=== PATIENT | female | born 1950 | race Caucasian/White ===

== ENCOUNTER 2016-06-05 11:43 | Emergency (ER) | payer OTHER ==
--- NOTE | 2016-06-05 12:34 | EDM.PDOC ---
ED HPI Trauma - General Chief Complaint: Upper Extremity Injury/Pain Stated Complaint: WRIST Time Seen by Provider: 06/05/16 11:44 Source: Reports: Patient History Limitations: Reports: No limitations - History of Present Illness INITIAL COMMENTS - FREE TEXT/NARRATIVE: History of present illness: [] Patient was moving a yard or at work yesterday and it was a metal and cut her left wrist. The wound today is now swollen red and she's having tenderness when she moves her wrist. Patient denies any fevers, numbness or tingling. She is less tender she was in 2014 Review of systems: As per history of present illness and below otherwise all systems reviewed and negative. Past medical history: As per history of present illness and as reviewed below otherwise noncontributory. Surgical history: As per history of present illness and as reviewed below otherwise noncontributory. Social history: No reported history of drug or alcohol abuse. Family history: As per history of present illness and as reviewed below otherwise noncontributory. Physical exam: General: Well developed, well nourished in NAD HEENT: Atraumatic, normocephalic, pupils reactive, negative for conjunctival pallor or scleral icterus, mucous membranes moist, throat clear, neck supple, nontender, trachea midline. Lungs: Clear to auscultation, breath sounds equal bilaterally, chest nontender. Heart: S1S2, regular, negative for clicks, rubs, or JVD. Abdomen: Soft, nondistended, nontender. Negative for masses or hepatosplenomegaly. Negative for costovertebral tenderness. Pelvis: Stable nontender. Genitourinary: Deferred. Rectal: Deferred. Extremities: Right wrist no obvious deformity, there is swelling erythema tenderness over the distal ulna, no active bleeding or purulent drainage. negative for cords or calf pain. Neurovascular unremarkable. Neuro: Awake, alert, oriented. Cranial nerves II through XII unremarkable. Cerebellum unremarkable. Motor and sensory unremarkable throughout. Exam nonfocal. Diagnostics: [] X-ray negative for fracture Therapeutics: [] Impression: [] Cellulitis right wrist Plan: [] Keflex 4 times a day for 7 days Definitive disposition and diagnosis as appropriate pending reevaluation and review of above. 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: Social & Family History - Family History Family Medical History: Noncontributory - Tobacco Use Smoking Status *Q: Current Every Day Smoker Years of Tobacco use: 50 Packs/Tins Daily: 1 - Caffeine Use Caffeine Use: Reports: Coffee - Recreational Drug Use Recreational Drug Use: No Review of Systems - Review of Systems Review Of Systems: See Below (See history of present illness) Trauma Exam - Physical Exam Exam: See Below (See history of present illness) Course - Vital Signs Last Recorded V/S: Last Vital Signs Temp 36.8 C 06/05/16 13:09 Pulse 77 06/05/16 12:04 Resp 18 06/05/16 12:04 BP 157/93 H 06/05/16 13:09 Pulse Ox 94 L 06/05/16 12:04 Departure - Departure Time of Disposition: 13:19 Disposition: Home, Self-Care 01 Condition: good Clinical Impression: Cellulitis of wrist Prescriptions: Cephalexin [Keflex] 500 mg PO Q6HR #28 cap Forms: ED Department Discharge Additional Instructions: The following information is given to patients seen in the emergency department who are being discharged to home. This information is to outline your options for follow-up care. We provide all patients seen in our emergency department with a follow-up referral. The need for follow-up, as well as the timing and circumstances, are variable depending upon the specifics of your emergency department visit. If you don't have a primary care physician on staff, we will provide you with a referral. We always advise you to contact your personal physician following an emergency department visit to inform them of the circumstance of the visit and for follow-up with them and/or the need for any referrals to a consulting specialist. The emergency department will also refer you to a specialist when appropriate. This referral assures that you have the opportunity for follow-up care with a specialist. All of these measure are taken in an effort to provide you with optimal care, which includes your follow-up. Under all circumstances we always encourage you to contact your private physician who remains a resource for coordinating your care. When calling for follow-up care, please make the office aware that this follow-up is from your recent emergency room visit. If for any reason you are refused follow-up, please contact the [facility] Emergency Department at and asked to speak to the emergency department charge nurse. Take Stefano as directed Followup PMD [facility] [address] [place] [id number]
--- NOTE | 2016-06-05 12:57 | CR ---
EXAMINATION: Right wrist HISTORY: Pain COMPARISON: None TECHNIQUE: 2 views FINDINGS: There is no acute osseous abnormality, dislocation, or fracture. Bone mineralization appea rs osteopenic. The radiocarpal alignment is preserved. Mild joint space narrowing is noted within th e radiocarpal articulation. Mild first CMC arthritis changes noted. IMPRESSION: Mild degenerative changes and osteopenia without an acute finding.
[2016-06-05 13:45] VITALS: BP 136/78
== END 2016-06-05 13:40 | disposition home or self-care (01) ==
LOC: MW.ED 11:43
DX: L03.113 Cellulitis of right upper limb (principal); F17.210 Nicotine dependence, cigarettes, uncomplicated; Z79.899 Other long term (current) drug therapy
CPT/HCPCS: 73100-26-RT; 73100-RT; 99283

== ENCOUNTER 2023-03-01 18:39 | Inpatient (IN) | payer MEDICARE, BC ==
[2023-03-01] MEDS ORDERED: Sodium Chloride 0.9% 2.5 ML Syringe FLUSH PRN (19:25)
[2023-03-01] MEDS ORDERED: Sodium Chloride 0.9% 1,000 ML IV ONE ×2 (19:25→21:15)
[2023-03-01] MEDS ORDERED: Sodium Chloride 0.9% 10 ML Syringe FLUSH PRN (19:25)
[2023-03-01 20:09] LABS: HEMATOCRIT 44.4 % (37.0-47.0); HEMOGLOBIN 14.8 g/dL (12.0-16.0); MEAN CORPUSCULAR HEMOGLOBIN 30.4 pg (28.0-32.0); MEAN CORPUSCULAR HGB CONC 33.3 g/dL (32.0-36.0); MEAN CORPUSCULAR VOLUME 91.2 fL (83.0-99.0); MEAN PLATELET VOLUME 9.3 fL (9.4-12.3); PLATELET COUNT,PLT 302 K/uL (150-400); RED BLOOD CELL COUNT 4.87 M/uL (4.10-5.30); WHITE BLOOD CELL COUNT,WBC 29.21 K/uL (3.9-11.3)
[2023-03-01 20:10] LABS: BASE EXCESS VENOUS 2.5 (-2.0-3.0); PH,VENOUS 7.38 (7.31-7.41)
[2023-03-01 20:22] LABS: CORONAVIRUS COVID-19 NAA NEGATIVE (NEGATIVE); INFLUENZA A NAA NEGATIVE (NEGATIVE); INFLUENZA B NAA NEGATIVE (NEGATIVE); RESPIRATORY SYNCYTIAL VIR NAA NEGATIVE (NEGATIVE)
[2023-03-01] MEDS ORDERED: Cefepime 2 GM in Sodium Chloride 0.9% 50 ML IV ONE (20:22)
[2023-03-01 20:33] LABS: D-DIMER QUANTITATIVE 7.7 mg/L FEU (0.00-0.50); INR 1.49 (0.86-1.11); PTT,PARTIAL THROMBOPLSTIN TIME 25.4 SEC (23.9-30.7)
[2023-03-01 20:58] LABS: LACTIC ACID 4.2 mmol/L (0.4-2.0)
[2023-03-01 21:00] LABS: A/G RATIO 0.4 (0.9-1.6); BILIRUBIN TOTAL 0.7 mg/dL (0.2-1.0); CALCIUM 8.8 mg/dL (8.5-10.1); CARBON DIOXIDE,CO2 26.4 mmol/L (21.0-32.0); CREATININE 1.4 mg/dL (0.6-1.0); EST CRCL DRUG DOSING (CG) 21.71 mL/min; MAGNESIUM 2.3 mg/dL (1.8-2.4); POTASSIUM,K 3.7 mmol/L (3.5-5.1); PROTEIN TOTAL,TP 7.4 g/dL (6.4-8.2); TSH ULTRASENSITIVE 1.56 uIU/mL (0.36-3.74)
[2023-03-01 21:23] LABS: LYMPHOCYTES ABSOLUTE MAN 2.63 K/uL (1.00-4.80); LYMPHOCYTES PERCENT MAN 9 % (24-44); MONOCYTES ABSOLUTE MAN 2.04 K/uL (0.00-0.80); MONOCYTES PERCENT MAN 7 % (0-8); SEG NEUTROPHILS ABSOLUTE MAN 24.54 K/uL (1.80-7.70); SEG NEUTROPHILS PERCENT MAN 84 % (41-71)
[2023-03-01] MEDS ORDERED: Iopamidol 755 MG/ML 500 ML Multipack Bottle IVPUSH STA (22:01)
[2023-03-01] MEDS ORDERED: Vancomycin 1 GM SDV ONE (22:12)
[2023-03-01] MEDS ORDERED: Sodium Chloride 0.9% 250 ML ONE (22:14)
[2023-03-01 22:39] LABS: BILIRUBIN,URINE NEGATIVE (NEGATIVE); COLOR,URINE YELLOW; GLUCOSE,URINE NEGATIVE (NEGATIVE); KETONES,URINE NEGATIVE (NEGATIVE); LEUKOCYTE ESTERASE,URINE TRACE (NEGATIVE); NITRITE,URINE POSITIVE (NEGATIVE); OCCULT BLOOD,URINE TRACE-INTACT (NEGATIVE); PH,URINE 5.5 (5.0-8.0); PROTEIN,URINE NEGATIVE (NEGATIVE); UROBILINOGEN,URINE 0.2 EU/dL (<2.0)
[2023-03-01 23:05] LABS: APPEARANCE,URINE HAZY
[2023-03-01 23:07] LABS: BACTERIA,URINE 2+ (NEGATIVE); EPITHELIAL CELLS,URINE RARE (NONE-FEW); FINE GRANULAR CASTS,URINE 0-1 (NEGATIVE); MUCUS,URINE MODERATE (NONE-MOD)
[2023-03-02] MEDS ORDERED: Enoxaparin 60 MG/0.6 ML Syringe SUBCUT STA (00:03)
[2023-03-02] MEDS ORDERED: Sodium Chloride 0.9% 500 ML IV SCH ×2 (01:15→02:30)
[2023-03-02] MEDS ORDERED: Acetaminophen 325 MG Tab PO PRN (01:33)
[2023-03-02] MEDS: Sodium Chloride 0.9% 1,000 ML IV SCH ×3 (02:06→17:08)
[2023-03-02] MEDS: Piperacillin/Tazobactam 4.5 GM in Sodium Chloride 0.9% 100 ML IV SCH ×3 (02:07→17:10)
[2023-03-02] MEDS: Albuterol/Ipratropium 3.0-0.5 MG/3 ML Neb Soln NEB PRN (02:48)
[2023-03-02] MEDS ORDERED: Heparin Sodium 5,000 Units/ML Vial IVPUSH ONE (08:27)
[2023-03-02] MEDS ORDERED: Sodium Chloride 0.9% 10 ML Syringe FLUSH PRN (08:31)
[2023-03-02] MEDS ORDERED: Docusate Sodium 100 MG Cap PO PRN (08:31)
[2023-03-02] MEDS ORDERED: Ondansetron 4 MG/2 ML SDV IVPUSH PRN (08:31)
[2023-03-02] MEDS ORDERED: Sodium Chloride 0.9% 2.5 ML Syringe FLUSH PRN (08:31)
[2023-03-02 08:49] LABS: HEMATOCRIT 38.5 % (37.0-47.0); MEAN CORPUSCULAR HEMOGLOBIN 30.5 pg (28.0-32.0); MEAN CORPUSCULAR HGB CONC 33.8 g/dL (32.0-36.0); MEAN CORPUSCULAR VOLUME 90.4 fL (83.0-99.0); MEAN PLATELET VOLUME 9.4 fL (9.4-12.3); PLATELET COUNT,PLT 273 K/uL (150-400); RED BLOOD CELL COUNT 4.26 M/uL (4.10-5.30); WHITE BLOOD CELL COUNT,WBC 20.66 K/uL (3.9-11.3)
[2023-03-02] MEDS ORDERED: Apixaban 5 MG Tab PO SCH (09:00)
[2023-03-02 09:24] LABS: BAND ABSOLUTE MAN 3.31; BAND PERCENT MAN 16 %; LYMPHOCYTES ABSOLUTE MAN 0.62 K/uL (1.00-4.80); LYMPHOCYTES PERCENT MAN 3 % (24-44); MONOCYTES ABSOLUTE MAN 1.24 K/uL (0.00-0.80); MONOCYTES PERCENT MAN 6 % (0-8); SEG NEUTROPHILS PERCENT MAN 75 % (41-71)
[2023-03-02 09:25] LABS: TOXIC GRANULATION 2+ MODERATE
[2023-03-02 09:47] LABS: A/G RATIO 0.4 (0.9-1.6); ALBUMIN 1.5 g/dL (3.4-5.0); BILIRUBIN TOTAL 0.5 mg/dL (0.2-1.0); CALCIUM 7.8 mg/dL (8.5-10.1); CARBON DIOXIDE,CO2 25.8 mmol/L (21.0-32.0); CREATININE 0.8 mg/dL (0.6-1.0); EST CRCL DRUG DOSING (CG) 40.86 mL/min; MAGNESIUM 1.9 mg/dL (1.8-2.4); PHOSPHORUS 2.8 mg/dL (2.6-4.7); POTASSIUM,K 3.2 mmol/L (3.5-5.1); PROTEIN TOTAL,TP 5.5 g/dL (6.4-8.2)
[2023-03-02] MEDS ORDERED: Potassium Chloride 20 MEQ Tab.ER PO ONE (10:57)
[2023-03-02] MEDS: Azithromycin 250 MG Tab PO SCH (11:36)
[2023-03-02] MEDS ORDERED: Enoxaparin 40 MG/0.4 ML Syringe SUBCUT SCH ×2 (12:00→13:00)
[2023-03-02] MEDS ORDERED: Enoxaparin 30 MG/0.3 ML Syringe SUBCUT SCH (12:00)
[2023-03-02] MEDS: Heparin Sodium/0.45% NaCl 500 ML IV SCH (13:14)
[2023-03-02] MEDS ORDERED: Morphine 2 MG/ML SYRINGE IVPUSH PRN (20:30)
[2023-03-03] MEDS: Piperacillin/Tazobactam 4.5 GM in Sodium Chloride 0.9% 100 ML IV SCH ×3 (00:50→18:05)
[2023-03-03] MEDS: Heparin Sodium 5,000 Units/ML Vial IVPUSH PRN ×2 (01:21→14:57)
[2023-03-03] MEDS: Sodium Chloride 0.9% 1,000 ML IV SCH ×3 (02:55→19:27)
[2023-03-03 05:49] LABS: BASOPHILS PERCENT AUTO 0.5 % (0.0-1.0); EOSINOPHILS ABSOLUTE AUTO 0.01 K/uL (0.00-0.45); EOSINOPHILS PERCENT AUTO 0.1 % (0.0-6.0); HEMATOCRIT 36.1 % (37.0-47.0); HEMOGLOBIN 11.7 g/dL (12.0-16.0); IMMATURE GRAN PERCENT AUTO 2.6 % (0.0-0.4); LYMPHOCYTES ABSOLUTE AUTO 1.22 K/uL (1.00-4.80); LYMPHOCYTES PERCENT AUTO 6.3 % (24.0-44.0); MEAN CORPUSCULAR HEMOGLOBIN 30.3 pg (28.0-32.0); MEAN CORPUSCULAR HGB CONC 32.4 g/dL (32.0-36.0); MEAN CORPUSCULAR VOLUME 93.5 fL (83.0-99.0); MEAN PLATELET VOLUME 9.5 fL (9.4-12.3); MONOCYTES ABSOLUTE AUTO 0.96 K/uL (0.00-0.80); NEUTROPHILS ABSOLUTE AUTO 16.56 K/uL (1.80-7.70); NEUTROPHILS PERCENT AUTO 85.5 % (41.0-71.0); PLATELET COUNT,PLT 238 K/uL (150-400); RED BLOOD CELL COUNT 3.86 M/uL (4.10-5.30); WHITE BLOOD CELL COUNT,WBC 19.35 K/uL (3.9-11.3)
[2023-03-03 06:30] LABS: CALCIUM 7.6 mg/dL (8.5-10.1); CARBON DIOXIDE,CO2 25.1 mmol/L (21.0-32.0); CREATININE 0.6 mg/dL (0.6-1.0); EST CRCL DRUG DOSING (CG) 56.37 mL/min; MAGNESIUM 1.7 mg/dL (1.8-2.4); PHOSPHORUS 2.3 mg/dL (2.6-4.7)
[2023-03-03 07:21] LABS: CARCINOEMBRYONIC ANTIGEN,CEA 1.4 ng/mL
[2023-03-03] MEDS ORDERED: Magnesium Sulfate/Water 2 GM in Premix Bag 1 BAG IV ONE (07:51)
[2023-03-03] MEDS: Azithromycin 250 MG Tab PO SCH (09:38)
[2023-03-03] MEDS: Potassium Chloride 20 MEQ Tab.ER PO SCH ×2 (09:38→18:03)
[2023-03-03] MEDS: Phosphorus #1 250 MG Tab PO SCH ×3 (09:40→18:03)
[2023-03-03] MEDS: Heparin Sodium/0.45% NaCl 500 ML IV SCH (19:26)
[2023-03-03] MEDS: VANCOmycin 1.5 GM/300 ML 1.5 GM in Premix Bag 1 BAG IV SCH (22:15)
[2023-03-04] MEDS: Phosphorus #1 250 MG Tab PO SCH ×5 (00:28→23:33)
[2023-03-04] MEDS: Piperacillin/Tazobactam 4.5 GM in Sodium Chloride 0.9% 100 ML IV SCH ×3 (00:36→17:23)
[2023-03-04 06:02] LABS: HEMATOCRIT 36.9 % (37.0-47.0); HEMOGLOBIN 12.1 g/dL (12.0-16.0); MEAN CORPUSCULAR HEMOGLOBIN 30.6 pg (28.0-32.0); MEAN CORPUSCULAR HGB CONC 32.8 g/dL (32.0-36.0); MEAN CORPUSCULAR VOLUME 93.2 fL (83.0-99.0); MEAN PLATELET VOLUME 9.7 fL (9.4-12.3); PLATELET COUNT,PLT 262 K/uL (150-400); RED BLOOD CELL COUNT 3.96 M/uL (4.10-5.30); WHITE BLOOD CELL COUNT,WBC 20.03 K/uL (3.9-11.3)
[2023-03-04 06:32] LABS: CARBON DIOXIDE,CO2 24.9 mmol/L (21.0-32.0); CREATININE 0.5 mg/dL (0.6-1.0); EST CRCL DRUG DOSING (CG) 76.34 mL/min; MAGNESIUM 1.5 mg/dL (1.8-2.4); PHOSPHORUS 2.8 mg/dL (2.6-4.7); POTASSIUM,K 2.9 mmol/L (3.5-5.1)
[2023-03-04 06:58] LABS: BAND PERCENT MAN 7 %; BASOPHILS PERCENT MAN 0 % (0-1); EOSINOPHILS PERCENT MAN 0 % (0-6); LYMPHOCYTES PERCENT MAN 4 % (24-44); MONOCYTES PERCENT MAN 6 % (0-8); SEG NEUTROPHILS ABSOLUTE MAN 16.62 K/uL (1.80-7.70); SEG NEUTROPHILS PERCENT MAN 83 % (41-71)
[2023-03-04] MEDS ORDERED: Magnesium Sulfate/Water 4 GM in Premix Bag 1 BAG IV ONE (08:05)
[2023-03-04] MEDS ORDERED: NS with KCl 40mEq 1,000 ML IV ONE (08:30)
[2023-03-04] MEDS: Azithromycin 250 MG Tab PO SCH (09:19)
[2023-03-04] MEDS: Apixaban 5 MG Tab PO SCH ×2 (09:20→21:41)
[2023-03-04] MEDS: Potassium Chloride 20 MEQ Tab.ER PO SCH ×2 (09:21→21:42)
[2023-03-04] MEDS: Lisinopril 10 MG Tab PO SCH (11:39)
[2023-03-04] MEDS: VANCOmycin 1.5 GM/300 ML 1.5 GM in Premix Bag 1 BAG IV SCH (21:42)
[2023-03-04] MEDS: Albuterol/Ipratropium 3.0-0.5 MG/3 ML Neb Soln NEB PRN (23:40)
[2023-03-05] MEDS: Piperacillin/Tazobactam 4.5 GM in Sodium Chloride 0.9% 100 ML IV SCH ×3 (01:30→18:43)
[2023-03-05] MEDS: Phosphorus #1 250 MG Tab PO SCH ×4 (05:46→23:47)
[2023-03-05 06:12] LABS: BASOPHILS PERCENT AUTO 0.6 % (0.0-1.0); EOSINOPHILS ABSOLUTE AUTO 0.05 K/uL (0.00-0.45); EOSINOPHILS PERCENT AUTO 0.3 % (0.0-6.0); HEMATOCRIT 36.6 % (37.0-47.0); HEMOGLOBIN 11.7 g/dL (12.0-16.0); IMMATURE GRAN ABSOLUTE AUTO 0.53 K/uL (0.00-0.05); IMMATURE GRAN PERCENT AUTO 3.1 % (0.0-0.4); LYMPHOCYTES ABSOLUTE AUTO 1.12 K/uL (1.00-4.80); LYMPHOCYTES PERCENT AUTO 6.5 % (24.0-44.0); MEAN CORPUSCULAR HEMOGLOBIN 29.6 pg (28.0-32.0); MEAN CORPUSCULAR VOLUME 92.7 fL (83.0-99.0); MEAN PLATELET VOLUME 9.6 fL (9.4-12.3); MONOCYTES ABSOLUTE AUTO 0.73 K/uL (0.00-0.80); MONOCYTES PERCENT AUTO 4.2 % (0.0-8.0); NEUTROPHILS PERCENT AUTO 85.3 % (41.0-71.0); PLATELET COUNT,PLT 277 K/uL (150-400); RED BLOOD CELL COUNT 3.95 M/uL (4.10-5.30); WHITE BLOOD CELL COUNT,WBC 17.23 K/uL (3.9-11.3)
[2023-03-05 06:41] LABS: CALCIUM 7.5 mg/dL (8.5-10.1); CARBON DIOXIDE,CO2 28.7 mmol/L (21.0-32.0); CREATININE 0.6 mg/dL (0.6-1.0); EST CRCL DRUG DOSING (CG) 65.56 mL/min; MAGNESIUM 1.9 mg/dL (1.8-2.4); PHOSPHORUS 2.9 mg/dL (2.6-4.7); POTASSIUM,K 4.6 mmol/L (3.5-5.1)
[2023-03-05] MEDS: Potassium Chloride 20 MEQ Tab.ER PO SCH ×2 (09:35→20:30)
[2023-03-05] MEDS: Apixaban 5 MG Tab PO SCH ×2 (09:35→20:28)
[2023-03-05] MEDS: Lisinopril 10 MG Tab PO SCH (09:36)
[2023-03-05] MEDS: Azithromycin 250 MG Tab PO SCH (09:38)
[2023-03-05] MEDS: VANCOmycin 1.5 GM/300 ML 1.5 GM in Premix Bag 1 BAG IV SCH (22:30)
[2023-03-06] MEDS: Piperacillin/Tazobactam 4.5 GM in Sodium Chloride 0.9% 100 ML IV SCH ×3 (00:43→17:53)
[2023-03-06] MEDS: Phosphorus #1 250 MG Tab PO SCH ×4 (05:32→23:57)
[2023-03-06 05:47] LABS: HEMATOCRIT 37.1 % (37.0-47.0); HEMOGLOBIN 12.5 g/dL (12.0-16.0); MEAN CORPUSCULAR HEMOGLOBIN 30.7 pg (28.0-32.0); MEAN CORPUSCULAR HGB CONC 33.7 g/dL (32.0-36.0); MEAN CORPUSCULAR VOLUME 91.2 fL (83.0-99.0); MEAN PLATELET VOLUME 9.4 fL (9.4-12.3); PLATELET COUNT,PLT 278 K/uL (150-400); RED BLOOD CELL COUNT 4.07 M/uL (4.10-5.30); WHITE BLOOD CELL COUNT,WBC 18.03 K/uL (3.9-11.3)
[2023-03-06 06:12] LABS: CALCIUM 7.4 mg/dL (8.5-10.1); CARBON DIOXIDE,CO2 29.3 mmol/L (21.0-32.0); CREATININE 0.5 mg/dL (0.6-1.0); MAGNESIUM 1.4 mg/dL (1.8-2.4); POTASSIUM,K 4.4 mmol/L (3.5-5.1)
[2023-03-06 06:42] LABS: BAND ABSOLUTE MAN 0.54; BAND PERCENT MAN 3 %; EOSINOPHILS PERCENT MAN 0 % (0-6); LYMPHOCYTES ABSOLUTE MAN 1.26 K/uL (1.00-4.80); LYMPHOCYTES PERCENT MAN 7 % (24-44); SEG NEUTROPHILS PERCENT MAN 81 % (41-71)
[2023-03-06 06:44] LABS: MONOCYTES ABSOLUTE MAN 1.62 K/uL (0.00-0.80); MONOCYTES PERCENT MAN 9 % (0-8)
[2023-03-06] MEDS: Potassium Chloride 20 MEQ Tab.ER PO SCH ×2 (09:59→20:49)
[2023-03-06] MEDS: Apixaban 5 MG Tab PO SCH ×2 (10:00→20:48)
[2023-03-06] MEDS: Azithromycin 250 MG Tab PO SCH (10:01)
[2023-03-06] MEDS: Lisinopril 10 MG Tab PO SCH (10:02)
[2023-03-06] MEDS ORDERED: Magnesium Sulfate/Water 2 GM in Premix Bag 1 BAG IV ONE (11:33)
[2023-03-07] MEDS: Piperacillin/Tazobactam 4.5 GM in Sodium Chloride 0.9% 100 ML IV SCH ×3 (00:55→17:38)
[2023-03-07 05:54] LABS: BASOPHILS ABSOLUTE AUTO 0.08 K/uL (0.00-0.20); BASOPHILS PERCENT AUTO 0.4 % (0.0-1.0); EOSINOPHILS ABSOLUTE AUTO 0.05 K/uL (0.00-0.45); EOSINOPHILS PERCENT AUTO 0.3 % (0.0-6.0); HEMATOCRIT 35.7 % (37.0-47.0); HEMOGLOBIN 12.1 g/dL (12.0-16.0); IMMATURE GRAN ABSOLUTE AUTO 0.41 K/uL (0.00-0.05); IMMATURE GRAN PERCENT AUTO 2.2 % (0.0-0.4); LYMPHOCYTES ABSOLUTE AUTO 1.13 K/uL (1.00-4.80); LYMPHOCYTES PERCENT AUTO 6.1 % (24.0-44.0); MEAN CORPUSCULAR HGB CONC 33.9 g/dL (32.0-36.0); MEAN CORPUSCULAR VOLUME 88.6 fL (83.0-99.0); MEAN PLATELET VOLUME 9.3 fL (9.4-12.3); MONOCYTES ABSOLUTE AUTO 0.83 K/uL (0.00-0.80); MONOCYTES PERCENT AUTO 4.5 % (0.0-8.0); NEUTROPHILS ABSOLUTE AUTO 15.91 K/uL (1.80-7.70); NEUTROPHILS PERCENT AUTO 86.5 % (41.0-71.0); PLATELET COUNT,PLT 300 K/uL (150-400); RED BLOOD CELL COUNT 4.03 M/uL (4.10-5.30); WHITE BLOOD CELL COUNT,WBC 18.41 K/uL (3.9-11.3)
[2023-03-07 06:30] LABS: CALCIUM 7.5 mg/dL (8.5-10.1); CREATININE 0.5 mg/dL (0.6-1.0); MAGNESIUM 1.5 mg/dL (1.8-2.4); POTASSIUM,K 4.3 mmol/L (3.5-5.1)
[2023-03-07] MEDS: Phosphorus #1 250 MG Tab PO SCH ×3 (06:54→17:38)
[2023-03-07] MEDS ORDERED: Magnesium Sulfate/Water 2 GM in Premix Bag 1 BAG IV ONE (08:52)
[2023-03-07] MEDS ORDERED: amLODIPine 5 MG Tab PO SCH (09:00)
[2023-03-07] MEDS: Potassium Chloride 20 MEQ Tab.ER PO SCH ×2 (09:11→20:27)
[2023-03-07] MEDS: Azithromycin 250 MG Tab PO SCH (09:11)
[2023-03-07] MEDS: Apixaban 5 MG Tab PO SCH ×2 (09:12→20:27)
[2023-03-07] MEDS: Lisinopril 10 MG Tab PO SCH (09:13)
[2023-03-07] MEDS ORDERED: Loperamide 2 MG Cap PO PRN (10:03)
[2023-03-07] MEDS ORDERED: Furosemide 40 MG/4 ML VIAL IVPUSH SCH (12:15)
[2023-03-07] MEDS ORDERED: Furosemide 40 MG/4 ML VIAL IVPUSH STA (12:41)
[2023-03-08] MEDS: Phosphorus #1 250 MG Tab PO SCH ×2 (00:01→06:04)
[2023-03-08] MEDS: Piperacillin/Tazobactam 4.5 GM in Sodium Chloride 0.9% 100 ML IV SCH ×3 (01:02→17:20)
[2023-03-08 06:01] LABS: BASOPHILS ABSOLUTE AUTO 0.05 K/uL (0.00-0.20); BASOPHILS PERCENT AUTO 0.3 % (0.0-1.0); EOSINOPHILS ABSOLUTE AUTO 0.08 K/uL (0.00-0.45); EOSINOPHILS PERCENT AUTO 0.5 % (0.0-6.0); HEMATOCRIT 34.4 % (37.0-47.0); HEMOGLOBIN 11.8 g/dL (12.0-16.0); IMMATURE GRAN ABSOLUTE AUTO 0.26 K/uL (0.00-0.05); IMMATURE GRAN PERCENT AUTO 1.6 % (0.0-0.4); LYMPHOCYTES ABSOLUTE AUTO 1.14 K/uL (1.00-4.80); LYMPHOCYTES PERCENT AUTO 6.9 % (24.0-44.0); MEAN CORPUSCULAR HEMOGLOBIN 30.8 pg (28.0-32.0); MEAN CORPUSCULAR HGB CONC 34.3 g/dL (32.0-36.0); MEAN CORPUSCULAR VOLUME 89.8 fL (83.0-99.0); MEAN PLATELET VOLUME 9.1 fL (9.4-12.3); MONOCYTES ABSOLUTE AUTO 0.91 K/uL (0.00-0.80); MONOCYTES PERCENT AUTO 5.5 % (0.0-8.0); NEUTROPHILS ABSOLUTE AUTO 14.16 K/uL (1.80-7.70); NEUTROPHILS PERCENT AUTO 85.2 % (41.0-71.0); PLATELET COUNT,PLT 301 K/uL (150-400); RED BLOOD CELL COUNT 3.83 M/uL (4.10-5.30)
[2023-03-08 06:36] LABS: A/G RATIO 0.3 (0.9-1.6); ALBUMIN 1.2 g/dL (3.4-5.0); BILIRUBIN TOTAL 0.6 mg/dL (0.2-1.0); CALCIUM 7.8 mg/dL (8.5-10.1); CREATININE 0.9 mg/dL (0.6-1.0); EST CRCL DRUG DOSING (CG) 44.37 mL/min; PROTEIN TOTAL,TP 5.4 g/dL (6.4-8.2)
[2023-03-08] MEDS: Azithromycin 250 MG Tab PO SCH (09:00)
[2023-03-08] MEDS: Lisinopril 10 MG Tab PO SCH (09:00)
[2023-03-08] MEDS: Apixaban 5 MG Tab PO SCH ×2 (09:00→21:20)
[2023-03-08] MEDS: Cholecalciferol (Vitamin D3) 25 MCG Tab PO SCH (10:33)
[2023-03-08] MEDS: Thiamine 100 MG Tab PO SCH (21:20)
[2023-03-08] MEDS: Folic Acid 1 MG Tab PO SCH (21:21)
[2023-03-08] MEDS: Mirtazapine 15 MG Tab PO SCH (21:41)
[2023-03-09] MEDS: Piperacillin/Tazobactam 4.5 GM in Sodium Chloride 0.9% 100 ML IV SCH ×3 (01:13→17:08)
[2023-03-09 05:46] LABS: BASOPHILS ABSOLUTE AUTO 0.03 K/uL (0.00-0.20); BASOPHILS PERCENT AUTO 0.2 % (0.0-1.0); EOSINOPHILS ABSOLUTE AUTO 0.15 K/uL (0.00-0.45); EOSINOPHILS PERCENT AUTO 0.9 % (0.0-6.0); HEMATOCRIT 33.8 % (37.0-47.0); HEMOGLOBIN 11.1 g/dL (12.0-16.0); IMMATURE GRAN ABSOLUTE AUTO 0.16 K/uL (0.00-0.05); LYMPHOCYTES ABSOLUTE AUTO 1.26 K/uL (1.00-4.80); LYMPHOCYTES PERCENT AUTO 7.8 % (24.0-44.0); MEAN CORPUSCULAR HGB CONC 32.8 g/dL (32.0-36.0); MEAN CORPUSCULAR VOLUME 91.4 fL (83.0-99.0); MEAN PLATELET VOLUME 9.5 fL (9.4-12.3); MONOCYTES ABSOLUTE AUTO 1.14 K/uL (0.00-0.80); MONOCYTES PERCENT AUTO 7.1 % (0.0-8.0); PLATELET COUNT,PLT 271 K/uL (150-400); WHITE BLOOD CELL COUNT,WBC 16.14 K/uL (3.9-11.3)
[2023-03-09 06:31] LABS: A/G RATIO 0.3 (0.9-1.6); ALBUMIN 1.2 g/dL (3.4-5.0); BILIRUBIN TOTAL 0.6 mg/dL (0.2-1.0); CALCIUM 7.6 mg/dL (8.5-10.1); CARBON DIOXIDE,CO2 35.9 mmol/L (21.0-32.0); CREATININE 0.8 mg/dL (0.6-1.0); EST CRCL DRUG DOSING (CG) 49.92 mL/min; MAGNESIUM 1.7 mg/dL (1.8-2.4); PHOSPHORUS 4.6 mg/dL (2.6-4.7); POTASSIUM,K 4.8 mmol/L (3.5-5.1); PROTEIN TOTAL,TP 4.9 g/dL (6.4-8.2)
[2023-03-09] MEDS ORDERED: Magnesium Sulfate/Water 2 GM in Premix Bag 1 BAG IV ONE (07:50)
[2023-03-09] MEDS: Cyanocobalamin (Vitamin B12) 500 MCG Tab PO SCH (08:41)
[2023-03-09] MEDS: Lisinopril 10 MG Tab PO SCH (08:41)
[2023-03-09] MEDS: Apixaban 5 MG Tab PO SCH ×2 (08:42→20:54)
[2023-03-09] MEDS: Cholecalciferol (Vitamin D3) 25 MCG Tab PO SCH (08:42)
[2023-03-09] MEDS: Azithromycin 250 MG Tab PO SCH (10:02)
[2023-03-09] MEDS: Fluticasone NASAL Spray 16 GM Bottle NASBOTH SCH (10:03)
[2023-03-09] MEDS: Carbamide Peroxide 6.5% Otic Soln 15 ML Bottle EARLF SCH ×2 (10:03→20:52)
[2023-03-09] MEDS: Mirtazapine 15 MG Tab PO SCH (20:53)
[2023-03-09] MEDS: Folic Acid 1 MG Tab PO SCH (20:55)
[2023-03-09] MEDS: Thiamine 100 MG Tab PO SCH (20:56)
[2023-03-10] MEDS: Piperacillin/Tazobactam 4.5 GM in Sodium Chloride 0.9% 100 ML IV SCH ×2 (01:12→10:14)
[2023-03-10 06:24] LABS: BASOPHILS ABSOLUTE AUTO 0.05 K/uL (0.00-0.20); BASOPHILS PERCENT AUTO 0.3 % (0.0-1.0); EOSINOPHILS ABSOLUTE AUTO 0.17 K/uL (0.00-0.45); EOSINOPHILS PERCENT AUTO 1.2 % (0.0-6.0); HEMATOCRIT 32.9 % (37.0-47.0); IMMATURE GRAN ABSOLUTE AUTO 0.14 K/uL (0.00-0.05); LYMPHOCYTES ABSOLUTE AUTO 1.16 K/uL (1.00-4.80); LYMPHOCYTES PERCENT AUTO 8.1 % (24.0-44.0); MEAN CORPUSCULAR HEMOGLOBIN 30.1 pg (28.0-32.0); MEAN CORPUSCULAR HGB CONC 33.4 g/dL (32.0-36.0); MEAN CORPUSCULAR VOLUME 90.1 fL (83.0-99.0); MEAN PLATELET VOLUME 9.2 fL (9.4-12.3); MONOCYTES ABSOLUTE AUTO 0.92 K/uL (0.00-0.80); MONOCYTES PERCENT AUTO 6.4 % (0.0-8.0); NEUTROPHILS ABSOLUTE AUTO 11.89 K/uL (1.80-7.70); PLATELET COUNT,PLT 319 K/uL (150-400); RED BLOOD CELL COUNT 3.65 M/uL (4.10-5.30); WHITE BLOOD CELL COUNT,WBC 14.33 K/uL (3.9-11.3)
[2023-03-10 06:49] LABS: A/G RATIO 0.3 (0.9-1.6); ALBUMIN 1.2 g/dL (3.4-5.0); BILIRUBIN TOTAL 0.5 mg/dL (0.2-1.0); CALCIUM 8.1 mg/dL (8.5-10.1); CARBON DIOXIDE,CO2 35.1 mmol/L (21.0-32.0); EST CRCL DRUG DOSING (CG) 39.94 mL/min; MAGNESIUM 1.9 mg/dL (1.8-2.4); PHOSPHORUS 4.4 mg/dL (2.6-4.7); POTASSIUM,K 3.9 mmol/L (3.5-5.1); PROTEIN TOTAL,TP 5.5 g/dL (6.4-8.2)
[2023-03-10] MEDS: Cyanocobalamin (Vitamin B12) 500 MCG Tab PO SCH (09:54)
[2023-03-10] MEDS: Cholecalciferol (Vitamin D3) 25 MCG Tab PO SCH (09:56)
[2023-03-10] MEDS: Apixaban 5 MG Tab PO SCH ×2 (09:58→20:34)
[2023-03-10] MEDS: Lisinopril 10 MG Tab PO SCH (09:59)
[2023-03-10] MEDS: Fluticasone NASAL Spray 16 GM Bottle NASBOTH SCH (10:01)
[2023-03-10] MEDS: Carbamide Peroxide 6.5% Otic Soln 15 ML Bottle EARLF SCH ×2 (10:02→20:34)
[2023-03-10] MEDS: Amoxicillin/Clavulanate K 875-125 MG Tab PO SCH ×2 (11:52→20:35)
[2023-03-10] MEDS: Mirtazapine 15 MG Tab PO SCH (20:35)
[2023-03-10] MEDS: Thiamine 100 MG Tab PO SCH (20:35)
[2023-03-10] MEDS: Folic Acid 1 MG Tab PO SCH (20:35)
[2023-03-11 05:59] LABS: BASOPHILS ABSOLUTE AUTO 0.05 K/uL (0.00-0.20); BASOPHILS PERCENT AUTO 0.4 % (0.0-1.0); EOSINOPHILS ABSOLUTE AUTO 0.11 K/uL (0.00-0.45); EOSINOPHILS PERCENT AUTO 0.8 % (0.0-6.0); HEMATOCRIT 31.2 % (37.0-47.0); HEMOGLOBIN 10.5 g/dL (12.0-16.0); IMMATURE GRAN ABSOLUTE AUTO 0.11 K/uL (0.00-0.05); IMMATURE GRAN PERCENT AUTO 0.8 % (0.0-0.4); LYMPHOCYTES ABSOLUTE AUTO 1.26 K/uL (1.00-4.80); LYMPHOCYTES PERCENT AUTO 8.9 % (24.0-44.0); MEAN CORPUSCULAR HEMOGLOBIN 30.3 pg (28.0-32.0); MEAN CORPUSCULAR HGB CONC 33.7 g/dL (32.0-36.0); MEAN CORPUSCULAR VOLUME 90.2 fL (83.0-99.0); MEAN PLATELET VOLUME 9.3 fL (9.4-12.3); MONOCYTES ABSOLUTE AUTO 0.86 K/uL (0.00-0.80); MONOCYTES PERCENT AUTO 6.1 % (0.0-8.0); NEUTROPHILS ABSOLUTE AUTO 11.77 K/uL (1.80-7.70); PLATELET COUNT,PLT 328 K/uL (150-400); RED BLOOD CELL COUNT 3.46 M/uL (4.10-5.30); WHITE BLOOD CELL COUNT,WBC 14.16 K/uL (3.9-11.3)
[2023-03-11 06:33] LABS: A/G RATIO 0.3 (0.9-1.6); ALBUMIN 1.2 g/dL (3.4-5.0); BILIRUBIN TOTAL 0.4 mg/dL (0.2-1.0); CALCIUM 8.1 mg/dL (8.5-10.1); CARBON DIOXIDE,CO2 34.1 mmol/L (21.0-32.0); CREATININE 0.9 mg/dL (0.6-1.0); EST CRCL DRUG DOSING (CG) 44.37 mL/min; MAGNESIUM 1.7 mg/dL (1.8-2.4); PHOSPHORUS 3.8 mg/dL (2.6-4.7); POTASSIUM,K 3.7 mmol/L (3.5-5.1); PROTEIN TOTAL,TP 5.5 g/dL (6.4-8.2)
[2023-03-11] MEDS ORDERED: Magnesium Sulfate/Water 2 GM in Premix Bag 1 BAG IV ONE (07:51)
[2023-03-11] MEDS: Lisinopril 10 MG Tab PO SCH (08:42)
[2023-03-11] MEDS: Cholecalciferol (Vitamin D3) 25 MCG Tab PO SCH (08:42)
[2023-03-11] MEDS: Amoxicillin/Clavulanate K 875-125 MG Tab PO SCH ×2 (08:42→20:46)
[2023-03-11] MEDS: Apixaban 5 MG Tab PO SCH ×2 (08:43→20:46)
[2023-03-11] MEDS: Cyanocobalamin (Vitamin B12) 500 MCG Tab PO SCH (08:43)
[2023-03-11] MEDS: Carbamide Peroxide 6.5% Otic Soln 15 ML Bottle EARLF SCH ×2 (08:44→20:47)
[2023-03-11] MEDS: Fluticasone NASAL Spray 16 GM Bottle NASBOTH SCH (08:44)
[2023-03-11] MEDS: Mirtazapine 15 MG Tab PO SCH (20:46)
[2023-03-11] MEDS: Thiamine 100 MG Tab PO SCH (20:46)
[2023-03-11] MEDS: Folic Acid 1 MG Tab PO SCH (20:46)
[2023-03-12 05:47] LABS: BASOPHILS ABSOLUTE AUTO 0.06 K/uL (0.00-0.20); BASOPHILS PERCENT AUTO 0.4 % (0.0-1.0); EOSINOPHILS ABSOLUTE AUTO 0.15 K/uL (0.00-0.45); HEMOGLOBIN 10.3 g/dL (12.0-16.0); IMMATURE GRAN ABSOLUTE AUTO 0.09 K/uL (0.00-0.05); IMMATURE GRAN PERCENT AUTO 0.6 % (0.0-0.4); LYMPHOCYTES ABSOLUTE AUTO 1.43 K/uL (1.00-4.80); LYMPHOCYTES PERCENT AUTO 9.8 % (24.0-44.0); MEAN CORPUSCULAR HEMOGLOBIN 29.9 pg (28.0-32.0); MEAN CORPUSCULAR HGB CONC 33.2 g/dL (32.0-36.0); MEAN CORPUSCULAR VOLUME 90.1 fL (83.0-99.0); MEAN PLATELET VOLUME 9.1 fL (9.4-12.3); MONOCYTES ABSOLUTE AUTO 0.97 K/uL (0.00-0.80); MONOCYTES PERCENT AUTO 6.6 % (0.0-8.0); NEUTROPHILS ABSOLUTE AUTO 11.92 K/uL (1.80-7.70); NEUTROPHILS PERCENT AUTO 81.6 % (41.0-71.0); PLATELET COUNT,PLT 334 K/uL (150-400); RED BLOOD CELL COUNT 3.44 M/uL (4.10-5.30); WHITE BLOOD CELL COUNT,WBC 14.62 K/uL (3.9-11.3)
[2023-03-12 06:10] LABS: A/G RATIO 0.3 (0.9-1.6); ALBUMIN 1.2 g/dL (3.4-5.0); BILIRUBIN TOTAL 0.4 mg/dL (0.2-1.0); CALCIUM 7.8 mg/dL (8.5-10.1); EST CRCL DRUG DOSING (CG) 39.94 mL/min; MAGNESIUM 1.8 mg/dL (1.8-2.4); PHOSPHORUS 3.7 mg/dL (2.6-4.7); POTASSIUM,K 3.4 mmol/L (3.5-5.1); PROTEIN TOTAL,TP 5.6 g/dL (6.4-8.2)
[2023-03-12 07:53] VITALS: BP 169/82; PULSE 81
[2023-03-12] MEDS: Apixaban 5 MG Tab PO SCH (07:59)
[2023-03-12] MEDS: Lisinopril 10 MG Tab PO SCH (07:59)
[2023-03-12] MEDS: Amoxicillin/Clavulanate K 875-125 MG Tab PO SCH (07:59)
[2023-03-12] MEDS: Fluticasone NASAL Spray 16 GM Bottle NASBOTH SCH (08:00)
[2023-03-12] MEDS: Cholecalciferol (Vitamin D3) 25 MCG Tab PO SCH (08:00)
[2023-03-12] MEDS: Cyanocobalamin (Vitamin B12) 500 MCG Tab PO SCH (08:00)
[2023-03-12] MEDS: Carbamide Peroxide 6.5% Otic Soln 15 ML Bottle EARLF SCH (08:00)
== END 2023-03-12 11:18 | DRG 871 ==
LOC: MW.ED 18:39 → MW.MS 03-02 00:42
PROVIDERS: ADMIT Family Medicine; ATTEND Family Medicine
DX: A41.9 Sepsis, unspecified organism (principal); R09.02 Hypoxemia; I48.91 Unspecified atrial fibrillation; I26.99 Other pulmonary embolism without acute cor pulmonale; E43 Unspecified severe protein-calorie malnutrition; I26.93 Single subsegmental thrombotic pulmonary embolism without acute cor pulmonale; Z20.822 Contact with and (suspected) exposure to COVID-19; J18.9 Pneumonia, unspecified organism; J96.01 Acute respiratory failure with hypoxia; F03.93 Unspecified dementia, unspecified severity, with mood disturbance; Z68.1 Body mass index [BMI] 19.9 or less, adult; N30.01 Acute cystitis with hematuria; R64 Cachexia; J44.0 Chronic obstructive pulmonary disease with (acute) lower respiratory infection; E83.42 Hypomagnesemia; R65.20 Severe sepsis without septic shock; I10 Essential (primary) hypertension; J43.9 Emphysema, unspecified; E87.6 Hypokalemia; F32.A Depression, unspecified; G47.00 Insomnia, unspecified; R62.7 Adult failure to thrive; R29.6 Repeated falls; I48.0 Paroxysmal atrial fibrillation; L89.152 Pressure ulcer of sacral region, stage 2; L89.302 Pressure ulcer of unspecified buttock, stage 2; R19.00 Intra-abdominal and pelvic swelling, mass and lump, unspecified site; I27.20 Pulmonary hypertension, unspecified; E83.39 Other disorders of phosphorus metabolism; I08.2 Rheumatic disorders of both aortic and tricuspid valves; D25.9 Leiomyoma of uterus, unspecified; Z11.52 Encounter for screening for COVID-19; Z87.891 Personal history of nicotine dependence; Z79.01 Long term (current) use of anticoagulants; Z79.899 Other long term (current) drug therapy
CPT/HCPCS: 0241U; 36415; 70450; 71045; 71046; 71275; 72125; 72128; 72131; 74177; 76830; 80048; 80053; 80202; 81001; 82378; 82550; 82607; 82803; 82947; 83605; 83690; 83735; 83880; 84100; 84443; 84484; 85025; 85379; 85610; 85730; 86304; 87040; 87086; 87899; 93005; 93306; 94667; 94668; 96361; 96365; 96366; 96367; 96372; 97110; 97163; 97530; 99285; 93010; 99223; 99232; 99239; A9270-GY; J0692; J1644; J1650; J1940; J2543; J3370; J3475; J3480; J3490; J7030; J7050; J7620-GY; Q9967